=== PATIENT | female | born 1945 | race Caucasian/White ===

== ENCOUNTER 2016-05-10 09:36 | Emergency (ER) | payer MEDICARE ==
[2016-05-10] MEDS ORDERED: Albuterol Sulfate 2.5 mg/3 ml Neb ONE ×2 (10:20)
--- NOTE | 2016-05-10 10:35 | RAD ---
PA AND LATERAL CHEST: HISTORY: Difficulty breathing. COMPARISON: 05/18/11 study. FINDINGS: Heart size and mediastinum are within normal limits. The lungs are clear of infiltrates. Bilateral breast implants are noted. Postoperative changes of the thoracolumbar spine are present. IMPRESSION: No active intrathoracic disease. POS: OFF
== END 2016-05-10 10:49 | disposition home or self-care (01) ==
LOC: NAV ERS 09:36
DX: J20.9 Acute bronchitis, unspecified (principal); J06.9 Acute upper respiratory infection, unspecified; Z79.899 Other long term (current) drug therapy
CPT/HCPCS: 71020; 87430; 93005; 94640; J7611

== ENCOUNTER 2017-10-24 20:23 | Emergency (ER) | payer MEDICARE ==
[2017-10-24] MEDS ORDERED: Ondansetron HCl/PF 4 MG/2 ML Vial ONE (21:19)
[2017-10-24] MEDS ORDERED: Sodium Chloride 0.9% 1,000 ML ONE (21:22)
[2017-10-24 21:26] LABS: ALT (SGPT) 16 U/L (8-55); AST (SGOT) 25 U/L (5-34); Albumin 3.5 g/dL (3.4-4.8); Alkaline Phosphatase 75 U/L (40-150); Anion Gap 14 mmol/L (10-20); BUN (Urea Nitrogen) 13 mg/dL (9.8-20.1); Bilirubin, Total 0.3 mg/dL (0.2-1.2); Calc. Creatinine Clearance 0 mL/min (70-130); Calcium 9.9 mg/dL (7.8-10.44); Carbon Dioxide 26 mmol/L (23-31); Chloride 102 mmol/L (98-107); Estimated GFR-MDRD 67; Globulin 3.4 g/dL (2.4-3.5); Glucose 116 mg/dL (83-110); Potassium 3.9 mmol/L (3.5-5.1); Protein, Total 6.9 g/dL (6.0-8.3); Sodium 138 mmol/L (136-145)
[2017-10-24 21:49] LABS: #Basophils 0.1 thou/uL (0.0-0.2); #Eosinphils 0.4 thou/uL (0.0-0.7); #Lymphocytes 2.5 thou/uL (1.20-3.40); #Monocytes 1.1 thou/uL (0.11-0.59); #Neutrophils 3.7 thou/uL (1.40-6.50); %Basophils 1.6 % (0.0-1.0); %Eosinophils 5.6 % (0.0-10.0); %Lymphocytes 31.8 % (21.0-51.0); %Monocytes 13.7 % (0.0-10.0); %Neutrophils 47.2 % (42.0-75.0); Hemoglobin 11.5 g/dL (12.0-16.0); Mean Corpuscular HGB CONC 32.3 g/dL (32.0-36.0); Mean Corpuscular Hemoglobin 30.1 pg (27.0-31.0); Mean Corpuscular Volume 93.2 fL (78.0-98.0); Platelet Count 527 thou/uL (130-400); RBC Distribution Width 13.7 % (11.5-14.5); Red Blood Cell (RBC) Count 3.81 mill/uL (4.20-5.40); White Blood Cell (WBC) Count 7.8 thou/uL (4.8-10.8)
--- NOTE | 2017-10-24 22:40 | RAD ---
FOUR VIEWS OF THE RIGHT KNEE: 10/24/17 COMPARISON: 10/13/17. HISTORY: Right knee pain with swelling. FINDINGS: There is a stable right total knee arthroplasty. No evidence for hardware failure. No knee joint effu aliya, displaced fracture, or evidence of dislocation. When compared to the study performed 10/13/17, the soft tissues of the imaged right lower extremity [place] more prominent, suggesting nonspecific diffuse soft tissue swelling. IMPRESSION: Findings suggesting soft tissue swelling. No acute osseous abnormality seen. POS: LORELEI
[2017-10-24 22:41] LABS: Bilirubin Negative (Negative); Blood, Urine Negative (Negative); Clarity Clear (Clear); Glucose, Urine (Dipstick) Negative (Negative); Leukocyte Negative (Negative); Nitrite Negative (Negative); Protein, Urine (Dipstick) Negative (Neg-Trace); Urobilinogen 0.2 mg/dL (0.2-1.0); pH, Urine 5.5 (5.0-9.0)
[2017-10-24] MEDS ORDERED: Clindamycin 150 MG CAP ONE (22:55)
== END 2017-10-24 23:00 | disposition home or self-care (01) ==
LOC: NAV ERS 20:23
DX: L03.115 Cellulitis of right lower limb (principal); I10 Essential (primary) hypertension; Z79.899 Other long term (current) drug therapy
CPT/HCPCS: 36416; 80053; 81003; 83605; 85025; 87040; 96361; 96374; 96375; J1170; J2270; J2405; J7050

== ENCOUNTER 2023-03-07 14:37 | Emergency (ER) | payer MEDICARE, OTHER ==
[2023-03-07] MEDS ORDERED: Metoclopramide HCl 10 MG/2 ML VIAL ONE (16:00)
[2023-03-07] MEDS ORDERED: Sodium Chloride 0.9% 1,000 ML ONE (16:00)
[2023-03-07] MEDS ORDERED: Amlodipine 5 MG TAB ONE (16:00)
[2023-03-07] MEDS ORDERED: Ketorolac Tromethamine 30 MG/ML VIAL ONE (16:00)
[2023-03-07 16:13] LABS: %Basophils 1.2 % (0.0-1.0)
[2023-03-07 16:14] LABS: #Basophils 0.1 thou/uL (0.0-0.2); #Eosinphils 0.1 thou/uL (0.0-0.7); #Monocytes 0.7 thou/uL (0.11-0.59); #Neutrophils 4.5 thou/uL (1.40-6.50); %Eosinophils 1.2 % (0.0-10.0); %Lymphocytes 35.3 % (21.0-51.0); %Monocytes 8.4 % (0.0-10.0); Hematocrit 46.1 % (36.0-47.0); Hemoglobin 14.6 g/dL (12.0-16.0); Mean Corpuscular HGB CONC 31.7 g/dL (32.0-36.0); Mean Corpuscular Hemoglobin 31.4 pg (27.0-31.0); Mean Corpuscular Volume 98.9 fl (78.0-98.0); Mean Platelet Volume 6.2 fL (7.4-10.4); Platelet Count 315 10x3/uL (130-400); RBC Distribution Width 13.3 % (11.5-14.5); Red Blood Cell (RBC) Count 4.66 mill/uL (4.20-5.40); White Blood Cell (WBC) Count 8.4 10x3/uL (4.8-10.8)
[2023-03-07] MEDS ORDERED: cloNIDine 0.2 MG TAB ONE (16:46)
[2023-03-07] MEDS ORDERED: fentaNYL 50 mcg/mL 1 mL Vial ONE ×2 (16:46→17:54)
[2023-03-07 16:53] LABS: Bilirubin Negative (Negative); Blood, Urine Negative (Negative); Clarity Clear (Clear); Glucose, Urine (Dipstick) Negative (Negative); Ketone, Urine Negative (Negative); Leukocyte Negative (Negative); Nitrite Negative (Negative); Protein, Urine (Dipstick) Negative (Neg-Trace); Urobilinogen 0.2 mg/dL (Less than 2); pH, Urine 5.5 (5.0-9.0)
[2023-03-07 16:58] LABS: Bacteria/HPF None Seen HPF (None Seen); CAUTI Indications for Culture Dysuria,urgency,freq; RBC/HPF None Seen HPF (0-3); Squamous Epithelial None Seen HPF (0-3); WBC/HPF None Seen HPF (0-3)
[2023-03-07 17:00] LABS: Urine Culture Reflex No No
[2023-03-07 17:04] LABS: ALT (SGPT) 13 U/L (8-55); AST (SGOT) 23 U/L (5-34); Alkaline Phosphatase 63 U/L (40-110); Anion Gap 18 mmol/L (10-20); BUN (Urea Nitrogen) 16 mg/dL (9.8-20.1); Calc. Creatinine Clearance 0 mL/min (70-130); Calcium 9.8 mg/dL (7.8-10.44); Carbon Dioxide 18 mmol/L (23-31); Chloride 105 mmol/L (98-107); Estimated GFR 63; Globulin 3.4 g/dL (2.4-3.5); Glucose 93 mg/dL (83-110); Potassium 4.6 mmol/L (3.5-5.1); Protein, Total 7.4 g/dL (5.8-8.1); Sodium 136 mmol/L (136-145)
[2023-03-07] MEDS ORDERED: Magnesium 2 GM/50 ML BAG (IN WATER) ONE (17:54)
[2023-03-07] MEDS ORDERED: Valproate Sodium 500 MG/5 ML VIAL ONE (19:12)
[2023-03-07] MEDS ORDERED: traMADol HCl 50 MG TAB ONE (19:12)
[2023-03-07] MEDS ORDERED: KETAMINE 100 MG/ML (5ML VIAL) ONE (20:27)
[2023-03-07] MEDS ORDERED: HYDROcodone/Acetaminophen 10/325 mg Tablet ONE (20:32)
== END 2023-03-07 21:04 | disposition home or self-care (01) ==
LOC: NAV ERS 14:37
DX: G44.221 Chronic tension-type headache, intractable (principal); I10 Essential (primary) hypertension
CPT/HCPCS: 36415; 71046; 80053; 81001; 84443; 85025; 87804; 87807; 96365; 96367; 96375; 96376; J1885; J2765; J3010; J3475; J7050